=== PATIENT | male | born 1950 | race Caucasian/White ===

== ENCOUNTER → 2020-05-13 11:59 | Outpatient (CLI) | payer MEDICARE, SELFPAY ==
--- NOTE | ~2020-05-13 | MR_ITS ---
EXAMINATION: MR knee RT wo con DATE: 05/13/2020 13:10 INDICATION: Right knee posttraumatic osteoarthritis. Right knee pain. TECHNIQUE: Magnetic resonance imaging (MRI) of the right knee was performed without intravenous contr ast. Sequences included axial PD-weighted FS FSE, coronal PD-weighted FSE and PD-weighted FS FSE, sag ittal PD-weighted FSE, and sagittal T2-weighted FS FSE. COMPARISON: None. FINDINGS: Medial compartment: There is a complex tear involving body and anterior horn of medial meniscus. There is cartilage surfa ce irregularity of tibial condyle. There is an insufficiency fracture of femoral condyle involving th e central and medial articular surface with up to 1.5 mm cortical depression and bone marrow edema. T here is deep partial thickness cartilage loss of femoral condyle involving the central articular surf don. Lateral compartment: Lateral meniscus is normal. There is shallow partial-thickness cartilage loss of tibial condyle invol ving the medial articular surface. There is cartilage surface irregularity of femoral condyle. Patellofemoral compartment: There is shallow partial-thickness cartilage loss of patellar medial facet, median ridge, and lateral facet. Trochlear cartilage is normal. Ligaments and tendons: There is a complete tear of anterior cruciate ligament. Posterior cruciate ligament is intact. Medial collateral ligament is normal. There are changes of prior sprain of fibular collateral ligament harleen acterized by thickening and increased signal intensity proximally. Fluid: There is a small knee joint effusion. There is mild prepatellar and superficial infrapatellar bursiti s. IMPRESSION: 1. Insufficiency fracture of medial femoral condyle. 2. Moderate chondrosis of medial compartment and mild chondrosis of lateral and patellofemoral compar tments. 3. Complex tear of medial meniscus. 4. Complete tear of anterior cruciate ligament. 5. Small knee joint effusion. Reviewed, dictated and finalized at location A. IMPRESSION: 1. Insufficiency fracture of medial femoral condyle. 2. Moderate chondrosis of medial compartment and mild chondrosis of lateral and patellofemoral compartments. 3. Complex tear of medial meniscus. 4. Complete tear of anterior cruciate ligament. 5. Small knee joint effusion.
--- NOTE | ~2020-05-13 | MR_ITS ---
EXAMINATION: MR cervical spine wo con DATE: 05/13/2020 13:01 INDICATION: Neck pain. TECHNIQUE: Magnetic resonance imaging (MRI) of the cervical spine was performed without intravenous c ontrast. Sequences included sagittal T2-weighted FSE, sagittal STIR FSE, sagittal T1-weighted FSE, ax ial MERGE, and axial T2-weighted FSE. COMPARISON: Cervical spine MRI 09/06/2019 FINDINGS: There is kyphosis of cervical spine. There is 2 mm retrolisthesis of C4 on C5. Vertebral wen dy heights are normal. There is severely decreased disc height from C3-C4 through C6-C7. The spinal c ord signal intensity is normal. The following disc levels are specifically discussed: C2-C3: The disc does not extend beyond the endplate margin. There is no uncovertebral joint osteoarth ritis. There is mild right and moderate left facet joint osteoarthritis. There is no neural foraminal stenosis. There is no central canal stenosis. C3-C4: The disc is bulging. There is severe bilateral uncovertebral joint osteoarthritis. There is mo derate right and mild left facet joint osteoarthritis. There is moderate bilateral neural foraminal s tenosis. There is mild central canal stenosis with ventral indentation of the spinal cord. C4-C5: The disc is bulging. There is severe bilateral uncovertebral joint osteoarthritis. There is mi ld bilateral facet joint osteoarthritis. There is moderate bilateral neural foraminal stenosis. There is moderate central canal stenosis with ventral and dorsal indentation of the spinal cord. C5-C6: The disc is bulging. There is severe bilateral uncovertebral joint osteoarthritis. There is mi ld left facet joint osteoarthritis. There is moderate bilateral neural foraminal stenosis. There is m ild central canal stenosis. C6-C7: The disc is bulging. There is severe bilateral uncovertebral joint osteoarthritis. There is mi ld bilateral facet joint osteoarthritis. There is moderate bilateral neural foraminal stenosis. There is mild central canal stenosis. C7-T1: There is a central protrusion. There is no uncovertebral joint osteoarthritis. There is modera te right and severe left facet joint osteoarthritis. There is mild bilateral neural foraminal stenosi s. There is no central canal stenosis. IMPRESSION: 1. Severe cervical spondylosis, stable from 09/06/2019. Reviewed, dictated and finalized at location A.
== END ==
PROVIDERS: PCP Internal Medicine
DX: M54.2 Cervicalgia (principal); M17.31 Unilateral post-traumatic osteoarthritis, right knee; M84.451A Pathological fracture, right femur, initial encounter for fracture; M22.2X1 Patellofemoral disorders, right knee; S83.231A Complex tear of medial meniscus, current injury, right knee, initial encounter; S83.512A Sprain of anterior cruciate ligament of left knee, initial encounter; M25.461 Effusion, right knee; M47.812 Spondylosis without myelopathy or radiculopathy, cervical region
CPT/HCPCS: 72141; 73721

== ENCOUNTER → 2021-04-21 13:46 | Outpatient (CLI) | payer MEDICARE, SELFPAY ==
--- NOTE | ~2021-04-21 | CT_ITS ---
EXAMINATION: CT chest high resolution wo pr EXAM DATE: 04/21/2021 14:07 INDICATION: Shortness of breath. TECHNIQUE: Spiral CT of the chest without contrast. HRCT. Axial, coronal and sagittal images of the chest were reviewed. Coronal maximum intensity pixel images of chest reviewed. The dose-length prod uct (DLP) for this examination was 489.55 mGy-cm. The exposure was tailored according to patient siz e (auto mA exposure control), and iterative reconstruction (ASIR) was used as additional dose reducti on technique. There is no prior study for comparison. FINDINGS: Small amount of right lower lobe interlobular septal thickening, probably mild interstitia l lung disease. There is mild emphysema and hyperinflation. Small region of right lower lobe tree-in- bud pattern opacities with some volume loss, probably postinfectious. There are no pleural or perica rdial effusions. Tracheobronchial tree is patent. There is no mediastinal, hilar or axillary lymp hadenopathy. There is no pneumothorax. Heart normal in size. There is mild coronary arterial ca lcification, arterial sclerosis. Upper abdomen is unremarkable. No osteoblastic or osteolytic lesi ons identified. IMPRESSION: 1. Evidence of mild right basilar interstitial lung disease. 2. Small right lower lobe post infectious residua. 3. Mild emphysema and hyperinflation. Reviewed, dictated and finalized at location B.
== END ==
DX: R06.02 Shortness of breath (principal); J43.9 Emphysema, unspecified; R91.8 Other nonspecific abnormal finding of lung field
CPT/HCPCS: 71250

== ENCOUNTER → 2022-01-05 16:34 | Outpatient (CLI) | payer MEDICARE, SELFPAY ==
--- NOTE | ~2022-01-05 | MR_ITS ---
EXAMINATION: MR shoulder RT wo con DATE: 01/05/2022 18:43 INDICATION: Acute onset right shoulder pain TECHNIQUE: Magnetic resonance imaging (MRI) of the right shoulder was performed without intravenous c ontrast. Sequences included axial PD-weighted FS FSE, coronal oblique PD-weighted FS FSE, coronal obl ique T2-weighted FS FSE, sagittal PD-weighted FS FSE, and sagittal T1-weighted SE. COMPARISON: None. FINDINGS: Coracoacromial arch: The acromion undersurface is curved in morphology (type II). In the anterior subacromial spur at the acromial insertion of the normal coracoacromial ligament. Moderate acromioclavicular osteoarthritis. There is thickening of the dorsal joint capsule along with irregular cortical contour and likely fitness sales associate kathe nonunited avulsion fracture along the anterosuperior margin of the acromial side of the joint. Rotator cuff: Mild supraspinatus and infraspinatus tendinopathy. Articular sided tear extending approximately 1.5 c m anteroposteriorly along the superior facet footplate of the supraspinatus tendon a couple points in creasing to small full-thickness tears measuring proximally 3 mm and 4 mm. The teres minor tendon is normal. Mild subscapularis tendinopathy without discrete tear. Normal rotator cuff muscle bulk and si gnal. Biceps tendon, glenoid labrum and glenohumeral cartilage: Long head of the biceps tendon is normal. Mild glenohumeral osteoarthritis with diffuse partial thick ness cartilage loss along the humeral head with smooth chondral surface. Glenoid labrum is diminutive and along much of its circumference partially replaced by small marginal osteophytes along the rim o f the glenoid. There is amorphous increased signal at the superior and posterior labrum consistent wi th degeneration without clearly defined linear labral tear. Fluid: Physiologic amount of fluid in the glenohumeral joint and biceps tendon sheath. No loose osteochondr al bodies. Small amount of fluid in the subacromial/subdeltoid bursa consistent with mild bursitis. Bones and other: Normal marrow signal. No acute fracture or pathologic marrow replacing process. There is thickening o f the joint capsule at the axillary recess as well as increased soft tissue replacing the normal fat signal at the rotator cuff interval, both findings which can be seen in the setting of adhesive capsu litis which is a clinical diagnosis. IMPRESSION: 1. Mild supraspinatus and infraspinatus tendinopathy with articular sided predominant tear with a cou ple small full-thickness components along the superior facet footplate of the supraspinatus. 2. Mild glenohumeral osteoarthritis with small glenoid labrum with degeneration superiorly and national sales consultant iorly. 3. Moderate acromioclavicular osteoarthritis with suggestion of likely chronic acromioclavicular join t separation with small nonunited capsular avulsion fracture fragment versus heterotopic ossicle gabriel g the anterosuperior rim of the acromial side of the joint space. 4. Mild subacromial/subdeltoid bursitis. Reviewed, dictated and finalized at location A. IMPRESSION: 1. Mild supraspinatus and infraspinatus tendinopathy with articular sided predo minant tear with a couple small full-thickness components along the superior fa cet footplate of the supraspinatus. 2. Mild glenohumeral osteoarthritis with small glenoid labrum with degeneration superiorly and posteriorly. 3. Moderate acromioclavicular osteoarthritis with suggestion of likely chronic acromioclavicular joint separation with small nonunited capsular avulsion fract ure fragment versus heterotopic ossicle along the anterosuperior rim of the acr omial side of the joint space. 4. Mild subacromial/subdeltoid bursitis.
== END ==
DX: M19.011 Primary osteoarthritis, right shoulder (principal); M75.51 Bursitis of right shoulder
CPT/HCPCS: 73221

== ENCOUNTER → 2022-01-05 16:37 | Outpatient (CLI) | payer MEDICARE, SELFPAY ==
--- NOTE | ~2022-01-05 | MR_ITS ---
EXAMINATION: MR cervical spine wo con DATE: 01/05/2022 18:43 INDICATION: Prolapsed cervical disc TECHNIQUE: Magnetic resonance imaging (MRI) of the cervical spine was performed without intravenous c ontrast. Sequences included sagittal T2-weighted FSE, sagittal T2-weighted FS FSE, sagittal T1-weight ed FSE, axial MERGE and axial T2-weighted FSE. COMPARISON: 08/13/2020 FINDINGS: Straightening of the normal cervical lordosis. Unchanged 2 mm retrolisthesis C4 on C5, 1 mm anterolis thesis C7 on T1 and 2 mm anterolisthesis T1 and T2. There is also 2 mm anterolisthesis C5 on C6. Vert ebral body heights are normal. Severe disc height loss from C3-C4 through C6-C7. Cord signal intensit y is normal. Cervical soft tissues are unremarkable. The following disc levels are specifically discu ssed: C2-C3: The disc does not extend beyond the endplate margin. There is no uncovertebral joint osteoarth ritis. There is mild right and moderate left facet joint osteoarthritis. There is no neural foraminal stenosis. There is no central canal stenosis. C3-C4: Disc is bulging. There is severe bilateral uncovertebral joint osteoarthritis. There is modera te bilateral facet joint osteoarthritis. There is moderate bilateral neural foraminal stenosis. There is moderate central canal stenosis with mild indention of the ventral surface of the cord. C4-C5: Disc is bulging superimposed central disc extrusion which extends 4 mm caudal to the level of the superior margin of C5. There is severe bilateral uncovertebral joint osteoarthritis. There is mil d to moderate bilateral facet joint osteoarthritis. There is moderate bilateral neural foraminal sten osis. There is moderate central canal stenosis with both bursal and central indentation of the cord. C5-C6: Disc is bulging. There is severe bilateral uncovertebral joint osteoarthritis. There is mild r ight and moderate to severe left facet joint osteoarthritis. There is moderate right and moderate to severe left neural foraminal stenosis. There is mild central canal stenosis. C6-C7: Disc is bulging. There is severe bilateral uncovertebral joint osteoarthritis. There is mild b ilateral facet joint osteoarthritis. There is moderate bilateral neural foraminal stenosis. There is mild central canal stenosis. C7-T1: Disc is mildly bulging. There is no uncovertebral joint osteoarthritis. There is moderate righ t and severe left facet joint osteoarthritis. There is mild bilateral neural foraminal stenosis. Ther e is no central canal stenosis. IMPRESSION: 1. No significant change in severe cervical spondylosis. Reviewed, dictated and finalized at location A.
== END ==
PROVIDERS: PCP Internal Medicine; Visit Provider Internal Medicine
DX: M50.20 Other cervical disc displacement, unspecified cervical region (principal); M47.813 Spondylosis without myelopathy or radiculopathy, cervicothoracic region; M48.03 Spinal stenosis, cervicothoracic region
CPT/HCPCS: 72141

== ENCOUNTER → 2022-07-15 13:16 | Outpatient (CLI) | payer MEDICARE, SELFPAY ==
--- NOTE | ~2022-07-15 | CT_ITS ---
EXAMINATION: CT lumbar spine wo con DATE: 07/15/2022 13:33 INDICATION: Lumbar spinal stenosis TECHNIQUE: Computed tomography (CT) of the lumbar spine was performed without intravenous contrast. A utomated exposure control and iterative reconstruction technique were employed. The dose-length produ ct was 831.45 mGy-cm. COMPARISON: Lumbar spine MR dated 09/06/2019 FINDINGS: Unchanged 2 mm anterolisthesis L4 on L5. 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 Verteb ral body heights are normal. Mild disc height loss at and L2-L3, L3-L4 and L5-S1 and mild to moderate disc height loss at L4-L5. The following disc levels are specifically discussed: T12-L1: The disc does not extend beyond the endplate margin. There is mild left and moderate right fa cet joint osteoarthritis. There is no neural foraminal stenosis. There is no central canal stenosis. L1-L2: The disc does not extend beyond the endplate margin. There is mild bilateral facet joint osteo arthritis. There is no neural foraminal stenosis. There is no central canal stenosis. L2-L3: Disc is mildly bulging. There is hypertrophy of the ligamentum flavum. There is moderate left and mild to moderate right facet joint osteoarthritis. There is minimal bilateral neural foraminal s tenosis. There is mild central canal stenosis. L3-L4: Moderate diffuse disc bulge. There is hypertrophy of the ligamentum flavum. There is moderate left and mild to moderate right facet joint osteoarthritis. There is mild to moderate bilateral neur al foraminal stenosis. There is moderate central canal stenosis. L4-L5: Moderate diffuse disc bulge. There is hypertrophy of the ligamentum flavum. There is moderate to severe bilateral facet joint osteoarthritis. There is moderate bilateral neural foraminal stenosis . There is moderate to severe central canal stenosis. L5-S1: Mild to moderate diffuse disc bulge. There is moderate left and severe right facet joint osteo arthritis. There is moderate right and mild to moderate left neural foraminal stenosis. There is mild central canal stenosis. IMPRESSION: 1. Mild to moderate lumbar spondylosis superimposed over a congenitally small central canal resulting in moderate central canal stenosis at L3-L4 and moderate to severe at L4-L5. Reviewed, dictated and finalized at location A. IMPRESSION: 1. Mild to moderate lumbar spondylosis superimposed over a congenitally small c entral canal resulting in moderate central canal stenosis at L3-L4 and moderate to severe at L4-L5.
== END ==
PROVIDERS: PCP Orthopaedic Surgery Orthopaedic Surgery of the Spine; Visit Provider Orthopaedic Surgery Orthopaedic Surgery of the Spine
DX: M47.817 Spondylosis without myelopathy or radiculopathy, lumbosacral region (principal); M48.07 Spinal stenosis, lumbosacral region; M47.815 Spondylosis without myelopathy or radiculopathy, thoracolumbar region; M48.05 Spinal stenosis, thoracolumbar region
CPT/HCPCS: 72131

== ENCOUNTER → 2022-07-23 10:44 | Outpatient (CLI) | payer MEDICARE, SELFPAY ==
--- NOTE | ~2022-07-23 | MR_ITS ---
EXAMINATION: MR cervical spine wo con DATE: 07/23/2022 11:21 INDICATION: Cervical spinal stenosis TECHNIQUE: Magnetic resonance imaging (MRI) of the cervical spine was performed without intravenous c ontrast. Sequences included sagittal T2-weighted FSE, sagittal T2-weighted FS FSE, sagittal T1-weight ed FSE, axial MERGE and axial T2-weighted FSE. COMPARISON: 01/05/2022 FINDINGS: Straightening of the normal cervical lordosis. Unchanged 2 mm retrolisthesis of C4 on C5 and one-2 mm anterolisthesis C7 on T1 and 2 mm anterolisthesis T1 and T2. Vertebral body heights are normal. Sev ere disc height loss at C3-C4 through C6-C7 with mild fibrovascular degenerative endplate changes donavan ng the inferior endplates in this region. Cord signal intensity is normal. Cervical soft tissues are unremarkable. The following disc levels are specifically discussed: C2-C3: The disc does not extend beyond the endplate margin. There is no uncovertebral joint osteoarth ritis. There is mild right and moderate left facet joint osteoarthritis. There is mild left neural fo raminal stenosis. There is no central canal stenosis. C3-C4: Disc is bulging. There is severe bilateral uncovertebral joint osteoarthritis. There is mild l eft and moderate right facet joint osteoarthritis. There is moderate bilateral neural foraminal steno sis. There is mild to moderate central canal stenosis with mild flattening of the ventral surface of the cord. C4-C5: Disc is bulging with unchanged central disc extrusion with disc material extending up to 4 mm caudal to the level of the superior endplate of C5. There is very bilateral uncovertebral joint osteo arthritis. There is mild to moderate bilateral facet joint osteoarthritis. There is moderate bilatera l neural foraminal stenosis. There is moderate central canal stenosis with indentation of the ventral surface of the cord. C5-C6: Disc is bulging. There is severe bilateral uncovertebral joint osteoarthritis. There is modera te to severe left and mild right facet joint osteoarthritis. There is right and moderate to severe le ft neural foraminal stenosis. There is mild central canal stenosis. C6-C7: Disc is bulging. There is severe bilateral uncovertebral joint osteoarthritis. There is mild b ilateral facet joint osteoarthritis. There is moderate bilateral neural foraminal stenosis. There is mild central canal stenosis. C7-T1: Disc is mildly bulging. There is no uncovertebral joint osteoarthritis. There is moderate righ t and severe left facet joint osteoarthritis. There is and mild bilateral, left greater than right ne ural foraminal stenosis. There is no central canal stenosis. IMPRESSION: 1. No significant interval change in severe cervical spondylosis. Reviewed, dictated and finalized at location A.
== END ==
PROVIDERS: PCP Orthopaedic Surgery Orthopaedic Surgery of the Spine; Visit Provider Orthopaedic Surgery Orthopaedic Surgery of the Spine
DX: M47.813 Spondylosis without myelopathy or radiculopathy, cervicothoracic region (principal); M48.03 Spinal stenosis, cervicothoracic region
CPT/HCPCS: 72141